=== PATIENT | female | born 1990 | race Caucasian/White ===

== ENCOUNTER 2022-01-09 16:20 | Emergency (ER) | payer OTHER ==
[~2022-01-09] VITALS: Ht 170.2 cm; Wt 77.1 kg
[2022-01-09 16:30] VITALS: BP_SYST 130
[2022-01-09] MEDS ORDERED: FAMOTIDINE 20 MG TABLET PO ONE (17:45)
[2022-01-09] MEDS ORDERED: MAG-AL HYDROX/SIMETH 30 ML UDC PO ONE (17:45)
--- NOTE | 2022-01-09 18:15 | NUR ---
ER at bedside examining patient.
[2022-01-09 18:17] LABS: BASOPHILS % (AUTO) 0.2 % (0.0-2.0); EOSINOPHILS % (AUTO) 0.4 % (0.0-4.0); HEMATOCRIT 38.3 % (36-48); HEMOGLOBIN 13.4 g/dL (12.0-16.0); LYMPHOCYTES # (AUTO) 1.5 K/uL (1.0-5.5); LYMPHOCYTES % (AUTO) 14.2 % (20.5-51.5); MEAN CORPUSCULAR HEMOGLOBIN 30 pg (27-31); MEAN CORPUSCULAR HGB CONC 35 % (32-36); MEAN CORPUSCULAR VOLUME 86 fL (79.0-98.0); MONOCYTES # (AUTO) 0.7 K/uL (0.0-1.0); MONOCYTES % (AUTO) 6.9 % (1.7-9.3); NEUTROPHILS # (AUTO) 8.3 K/uL (1.8-7.7); NEUTROPHILS % (AUTO) 78.3 % (40.0-70.0); PLATELET COUNT (AUTO) 270 K/uL (130-430); RED BLOOD CELL COUNT(AUTO) 4.46 MIL/uL (4.2-6.2); RED CELL DISTRIBUTION WIDTH 12.7 % (9.0-15.0); WHITE BLOOD COUNT (AUTO) 10.6 K/uL (4.8-10.8)
[2022-01-09 18:21] LABS: ANION GAP 9 (5-15); CALCIUM 9.6 mg/dL (8.4-11.0); CHLORIDE 104 mmol/L (98-107); GFR AFRICAN AMERICAN 95 mL/min (>90); GLUCOSE 121 mg/dL (70-99); UREA NITROGEN, BLOOD 14 mg/dL (8-21)
[2022-01-09 18:30] LABS: ALANINE AMINOTRANSFERASE 155 U/L (12-78); ALBUMIN 3.9 g/dL (3.4-4.8); ASPARTATE AMINOTRANSFERASE 229 U/L (10-37); TOTAL BILIRUBIN 0.4 mg/dL (0.0-1.0)
--- NOTE | 2022-01-09 18:30 | NUR ---
Pt bib bls from home. CC epigastric pain, chest wall and radiates to flank pain. Pt is <4 weeks as stated by pt.
--- NOTE | 2022-01-09 19:00 | NUR ---
PT IN [facility] STATES THE PEPCID WAS NOT EFFECTIVE FOR CHEST PAIN RELIEF.
[2022-01-09] MEDS ORDERED: ACETAMINOPHEN 500 MG TABLET PO ONE (20:45)
[2022-01-09 21:26] LABS: BILIRUBIN,URINE NEGATIVE (NEGATIVE); BLOOD, URINE NEGATIVE (NEGATIVE); COLOR,URINE YELLOW (YELLOW); GLUCOSE,URINE NEGATIVE (NEGATIVE); KETONES,URINE NEGATIVE (NEGATIVE); NITRITE, URINE NEGATIVE (NEGATIVE); PROTEIN URINE NEGATIVE (NEGATIVE)
[2022-01-09 21:35] LABS: CLARITY/URINE SLIGHTLY CLOUDY (CLEAR); LEUKOCYTE ESTERASE ,URINE TRACE (NEGATIVE)
[2022-01-09 21:36] LABS: BACTERIA,URINE MODERATE /HPF (None Seen); MUCUS,URINE None Seen /LPF (None Seen); RBC,URINE 0-3 /HPF (0-3); URINE AMORPHOUS PHOSPHATES 3+ /HPF (None Seen)
[2022-01-09] MEDS ORDERED: FAMO20TA8 PO (22:15)
[2022-01-09] MEDS ORDERED: CEPH-548 PO (22:15)
[2022-01-09 22:27] VITALS: BP_SYST 130
--- NOTE | 2022-01-09 22:27 | NUR ---
Patient given written and verbal discharge instructions and verbalizes understanding. ER DR. ERNANDEZ discussed with patient the results and treatment provided. Patient in stable condition. ID arm band removed. Rx of PEPCID AND CEPHALEXIN given. Patient educated on pain management and to follow up with PMD. Pain Scale 0. Opportunity for questions provided and answered. Medication side effect fact sheet provided.
== END 2022-01-09 22:27 | disposition home or self-care (01) ==
LOC: EDBD 16:20 → SED 16:20
DX: R07.89 Other chest pain (principal); N39.0 Urinary tract infection, site not specified; K21.9 Gastro-esophageal reflux disease without esophagitis; R74.8 Abnormal levels of other serum enzymes; Z79.899 Other long term (current) drug therapy
CPT/HCPCS: 36415; 71045; 80053; 81000; 81025; 84484; 85025; 93005; 99285